=== PATIENT | male | born 1985 | race African-American/Black ===

== ENCOUNTER 2018-04-03 06:52 | Emergency (ER) | payer BC, OTHER ==
[2018-04-03] MEDS ORDERED: Bacitracin Zinc 1 Packet ONE (07:49)
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
== END 2018-04-03 08:00 | disposition home or self-care (01) ==
LOC: NAV ERS 06:52
DX: S67.02XA Crushing injury of left thumb, initial encounter (principal); S61.012A Laceration without foreign body of left thumb without damage to nail, initial encounter; E78.5 Hyperlipidemia, unspecified; D64.9 Anemia, unspecified; E55.9 Vitamin D deficiency, unspecified; Z79.899 Other long term (current) drug therapy; W22.8XXA Striking against or struck by other objects, initial encounter
CPT/HCPCS: 99001